=== PATIENT | female | born 2000 | race Caucasian/White ===

== ENCOUNTER 2018-03-29 08:00 | Outpatient (CLI) | payer OTHER | END 2018-03-29 08:01 | LOC: LAB.R 08:00 | PROVIDERS: ATTEND Registered Nurse | DX: Z11.3 Encounter for screening for infections with a predominantly sexual mode of transmission (principal) | CPT/HCPCS: 87491; 87591 ==

== ENCOUNTER 2018-04-26 14:43 | Outpatient (CLI) | payer OTHER ==
[2018-04-26 15:08] LABS: HGB - HEMOGLOBIN 11.8 g/dL (12.0-16.0); MEAN CORPUSCULAR HEMOGLOBIN 32.2 pg (27.0-31.0); MEAN CORPUSCULAR HGB CONC 34.1 g/dL (32.0-36.0); MEAN CORPUSCULAR VOLUME 94.6 fL (81.0-99.0); MEAN PLATELET VOLUME 7.7 fL (7.9-10.8); RED BLOOD COUNT 3.65 10^6/uL (4.20-5.40); RED CELL DISTRIBUTION WIDTH 12.9 % (12.0-15.0); WHITE BLOOD COUNT 10.9 x10^3/uL (4.8-10.8)
== END 2018-04-26 14:44 | disposition home or self-care (01) ==
LOC: LAB 14:43
PROVIDERS: ATTEND Nurse Practitioner Obstetrics & Gynecology
DX: Z36.9 Encounter for antenatal screening, unspecified (principal)
CPT/HCPCS: 36415; 85027; 86850

== ENCOUNTER 2018-05-04 10:04 | Outpatient (CLI) | payer OTHER | END 2018-05-04 10:05 | disposition home or self-care (01) | LOC: LAB 10:04 | PROVIDERS: ATTEND Nurse Practitioner Obstetrics & Gynecology | DX: Z36.9 Encounter for antenatal screening, unspecified (principal) | CPT/HCPCS: 36415; 82950 ==

== ENCOUNTER 2018-05-30 08:00 | Outpatient (CLI) | payer OTHER | END 2018-05-30 08:01 | disposition home or self-care (01) | LOC: LAB.R 08:00 | PROVIDERS: ATTEND Nurse Practitioner Obstetrics & Gynecology | DX: N76.0 Acute vaginitis (principal) | CPT/HCPCS: 87480; 87510; 87660 ==

== ENCOUNTER 2018-07-11 08:00 | Outpatient (CLI) | payer OTHER | END 2018-07-11 23:59 | disposition home or self-care (01) | LOC: LAB.R 08:00 | PROVIDERS: ATTEND Registered Nurse | DX: Z33.1 Pregnant state, incidental (principal) | CPT/HCPCS: 87491; 87591; 87797 ==

== ENCOUNTER 2018-07-11 12:02 | Outpatient (CLI) | payer OTHER ==
[2018-07-12 12:26] LABS: HEPATITIS C ANTIBODY NON-REACTIVE (NON-REACTIVE); HIV AG/AB 4TH GEN NON-REACTIVE (NON-REACTIVE)
== END 2018-07-11 12:03 | disposition home or self-care (01) ==
LOC: LAB 12:02
PROVIDERS: ATTEND Registered Nurse
DX: Z33.1 Pregnant state, incidental (principal)
CPT/HCPCS: 36415; 81599; 86803; 87389; 87491; 87591; 87797

== ENCOUNTER 2018-08-10 08:13 | Inpatient (IN) | payer OTHER ==
[2018-08-10] MEDS ORDERED: ONDANSETRON 4 MG/2 ML VIAL IVP PRN (08:22)
[2018-08-10] MEDS ORDERED: fentaNYL 100 MCG/2 ML VIAL IVP PRN (08:22)
[2018-08-10] MEDS ORDERED: SODIUM CHLORIDE FLUSH 0.9% 10 ML SYRINGE IVP PRN (08:22)
[2018-08-10 08:58] LABS: BASOPHILS % (AUTO) 0.5 %; EOSINOPHILS # (AUTO) 0.1 10^3/uL (0.0-0.7); EOSINOPHILS % (AUTO) 0.7 %; HGB - HEMOGLOBIN 11.3 g/dL (12.0-16.0); LYMPHOCYTES # (AUTO) 1.7 10^3/uL (1.5-3.5); LYMPHOCYTES % (AUTO) 22.1 %; MEAN CORPUSCULAR HGB CONC 33.3 g/dL (32.0-36.0); MEAN CORPUSCULAR VOLUME 90.2 fL (81.0-99.0); MONOCYTES # (AUTO) 0.9 10^3/uL (0.0-1.0); MONOCYTES % (AUTO) 11.1 %; NEUTROPHILS % (AUTO) 65.6 %; PLT - PLATELET COUNT 263 10^3/uL (130-450); RED BLOOD COUNT 3.76 10^6/uL (4.20-5.40); RED CELL DISTRIBUTION WIDTH 14.3 % (12.0-15.0); WHITE BLOOD COUNT 7.7 x10^3/uL (4.8-10.8)
[2018-08-10] MEDS ORDERED: LACTATED RINGERS 1,000 ML IV SCH (09:00)
[2018-08-10] MEDS: miSOPROStol 100 MCG TABLET BC SCH (12:09)
[2018-08-10] MEDS ORDERED: ZOLPIDEM 5 MG TABLET PO PRN (21:00)
--- NOTE | 2018-08-11 06:30 | HISTORY & PHYSICAL EXAMINATION ---
Admit History - Visit Reason Visit Reason: Other - : 1 Parity: 0 Premature: 0 Ectopic: 0 : 0 Care: positive: [facility] Risk/History: positive: None Complications This : positive: None Smoking Status: Never smoker - Mother's Labs Mother's RH: positive: Positive GBS: positive: Group B Step Negative Rubella Status: positive: Immune Meds/Allgy - Home Medications Home Medications: Ambulatory Orders Medication Instructions Recorded Confirmed Pnv No.121/Iron/Folic Acid 1 each PO DAILY 08/10/18 08/10/18 [ Multivitamin Tablet] - Allergies Allergies/Adverse Reactions: Allergies Allergy/AdvReac Type Severity Reaction Status Date / Time No Known Drug Allergies Allergy Verified 08/10/18 09:35 Review of Systems - Constitutional Constitutional: denies: Fatigue, Fever, Chills, Malaise - Eyes Eyes: denies: Blurred vision, Spots in vision, Dipolpia - Cardiovascular Cariovascular: denies: Irregular heart rate, Chest pain, Edema - Respiratory Respiratory: denies: Cough, Sputum production, Wheezing, SOB at rest - Gastrointestinal Gastrointestinal: denies: Abdominal pain, Constipation, Diarrhea, Nausea, Vomiting - Integumentary Integumentary: denies: Rash, Pruritis - Psychiatric Psychiatric: denies: Depression, Anxiety Physical - Abdominal Exam Vital Signs: Temp Pulse Resp BP Pulse Ox 37 C 63 16 118/63 08/10/18 19:00 08/10/18 19:00 08/10/18 19:00 08/10/18 19:00 Contraction Frequency (min/apart): 4-6 Contraction Intensity: positive: Mild Uterine Resting Tone: positive: Soft - Monitoring Heart Rate Baseline: 130 Strip Review: positive: Category I - Presentation Presentation: positive: Vertex - Vaginal Exam Membranes: positive: Membranes intact Dilation (in cm): 1 Effacement (%): 80 Station: positive: -2 Cervical Position: positive: Posterior - Speculum Exam Speculum Exam Performed: positive: No Plan for Labor - Plan For Labor I expect patient to be DC'd or transferred within 96 hours.: Yes Plan for Labor: HPI: This 18yo @ 40.2wks By 10w.5k U/S presented on 08/10/2018 at 0830 for IOL with pre-induction cervical ripening. Upon arrival she was noted to be 1/80/-1, posterior, vertex. This was unchanged from her cervical examination in the office 4 days prior. She denies VB or Lof and reports +FM. She is unable to feel her contractions. She has received regular care through the duration of her and she was a transfer of care from [facility] to [facility] @ 21wks gestation. Dating criteria: LMP unsure Initial ultrasound @ 10.5wks OB History: G1: Current Meds: PNV Allergies: NKDA PMHx: Anxiety/depression Surgical Hx: None Social Hx: Never smoker, no ETOH or IVDA. She is active duty . 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 Family Hx: Diabetes- Mother, Maternal Grandmother labs: O pos, antibody neg Hgb 13.0, Hct 39.2, PLT 277 UA negative GC/CT neg Hep B neg Hep C neg VZV neg Rubella immune HIV non-reactive Immunizations: Influenza 04/26/2019 Tdap 05/18/2019 28wk labs: 1 hour GTT 124 Hgb 11.8 Antibody negative 36wk Labs: GBS NEGATIVE HIV non-reactive GC/CT neg RPR non-reactive Hep C neg Genetic testing: Serum integrated screen Negative CF Carrier - FOB negative Ultrasounds: Initial U/S @ 10.5wks gestation dates FAS not included with record - requesting A: 18yo @ 40.2wks gestation by 10.5wk U/S GBS negative Pre-induction cervical ripening with misoprostol P: Place in observation status in anticipation for pre-induction cervical ripening. Plan misoprostol BC q 4 hours. Admit when in active labor or with SROM. Anticipate spontaneous vaginal delivery.
[2018-08-11] MEDS: SODIUM CHLORIDE FLUSH 0.9% 10 ML SYRINGE IVP SCH ×2 (06:31→10:35)
[2018-08-11] MEDS: miSOPROStol 100 MCG TABLET BC SCH ×2 (06:33→10:34)
--- NOTE | 2018-08-11 07:12 | PROVIDER PROGRESS NOTE ---
Subjective - Subjective Subjective: Mood is good. Laying comfortably in bed with Paul at the bedside for support. Feeling intermittent cramping but nothing overly uncomfortable. Contracted intermittently throughout the night. Did take an ambien for sleep which helped and she states she was able to get a good night's sleep. Misoprostol held throughout the night and patient received 1 dose 08/10/2018. NSTs every 4 hours throughout the night were reactive. SVE 2/90/-1, midposition, vertex. Membranes intact. Assessment: 18yo @ 40.3wks gestation by 10.5wk U/S Pre-induction cervicla ripening with 50mcg Misoprostol q 4 hours BC - total doses administered = 1 GBS negative. FHT Category I Plan: Resume administration of 50mcg misoprostol q 4 hrs BC. Consider AROM after 2 doses of misoprostol given today. Reviewed above plan with patient, FOB and OB RN who are all in agreement. Admit when in active labor or with SROM. Anticipate spontaneous vaginal delivery. Objective - Vital Signs/Intake & Output Intake & Output: Intake & Output 08/08/18 08/09/18 08/10/18 08/11/18 23:59 23:59 23:59 23:59 Intake Total 1000 Balance 1000 - Lab Results Fish Bones: 08/10/18 08:49 Other Labs: Lab Results x24hrs 08/10/18 Range/Units 08:49 WBC 7.7 (4.8-10.8) x10^3/uL RBC 3.76 L (4.20-5.40) 10^6/uL Hgb 11.3 L (12.0-16.0) g/dL Hct 33.9 L (37.0-47.0) % MCV 90.2 (81.0-99.0) fL MCH 30.0 (27.0-31.0) pg MCHC 33.3 (32.0-36.0) g/dL RDW 14.3 (12.0-15.0) % Plt Count 263 (130-450) 10^3/uL MPV 8.0 (7.9-10.8) fL Neut # (Auto) 5.0 (1.5-6.6) 10^3/uL Lymph # (Auto) 1.7 (1.5-3.5) 10^3/uL [place] # (Auto) 0.9 (0.0-1.0) 10^3/uL Eos # (Auto) 0.1 (0.0-0.7) 10^3/uL Baso # (Auto) 0.0 (0.0-0.1) 10^3/uL Absolute Nucleated RBC 0.00 x10^3/uL Nucleated RBC % 0.0 /100WBC
[2018-08-11] MEDS ORDERED: fent/BUPIV 2 MCG/0.125% 250 ML EP ONE (11:29)
--- NOTE | 2018-08-11 11:29 | ANESTHESIA ---
Pre-Anesthesia VS, & Labs - Diagnosis active labor - Procedure vaginal delivery Vital Signs: Temp Pulse Resp BP Pulse Ox 37 C 63 16 118/63 08/10/18 19:00 08/10/18 19:00 08/10/18 19:00 08/10/18 19:00 Height 5 ft 7 in Weight (kg) 77.564 kg - NPO Other (not npo) - Is Patient ?: Yes - Lab Results Current Lab Results: Laboratory Tests 08/10/18 08:49: WBC 7.7, RBC 3.76 L, Hgb 11.3 L, Hct 33.9 L, MCV 90.2, MCH 30.0, MCHC 33.3, RDW 14.3, Plt Count 263, MPV 8.0, Neut # (Auto) 5.0, Lymph # (Auto) 1.7, [place] # (Auto) 0.9, Eos # (Auto) 0.1, Baso # (Auto) 0.0, Absolute Nucleated RBC 0.00, Nucleated RBC % 0.0 Fish Bones: 08/10/18 08:49 Home Medications and Allergies Home Medications: Ambulatory Orders Pnv No.121/Iron/Folic Acid [ Multivitamin Tablet] 1 each PO DAILY 08/10/18 Active Medications Fentanyl (Fentanyl) 50 mcg IVP Q1H PRN PRN Reason: PAIN Lactated Ringer's (Lr) 1,000 mls @ 100 mls/hr IV .Q10H [facility] Last Admin: 08/10/18 12:11 Dose: 100 mls/hr Misoprostol (Cytotec) 50 mcg BC Q4H [facility] Last Admin: 08/11/18 10:34 Dose: 50 mcg Ondansetron HCl (Zofran Inj) 4 mg IVP Q4HR PRN PRN Reason: Nausea / Vomiting Sodium Chloride (Normal Saline Flush 0.9%) 10 ml IVP 0100,0900,1700 [facility] Last Admin: 08/11/18 10:35 Dose: 10 ml Sodium Chloride (Normal Saline Flush 0.9%) 10 ml IVP PRN PRN PRN Reason: NEEDED PER PROVIDER ORDERS Zolpidem Tartrate (Ambien) 10 mg PO QPM PRN PRN Reason: Insomnia Last Admin: 08/10/18 21:41 Dose: 10 mg Pnv No.121/Iron/Folic Acid [ Multivitamin Tablet] 1 each PO DAILY 08/10/18 Allergies/Adverse Reactions: Allergies Allergy/AdvReac Type Severity Reaction Status Date / Time No Known Drug Allergies Allergy Verified 08/10/18 09:35 Anes History & Medical History - Anesthetic History Family history of Anesthesia Complications: Denies Family history of Malignant Hyperthermia: Denies - Medical History Cardiovascular: reports: None Pulmonary: reports: None Gastrointestinal: reports: None Urinary: reports: None Neuro: reports: None Musculoskeletal: reports: Scoliosis (patient reports lumbar scoliosis) Endocrine/Autoimmune: reports: None Blood Disorders: reports: None Smoking Status: Never smoker - Obstetrical History : 1 Parity: 0 Events: positive: None Complications: positive: None Exam General: Alert, Oriented x3, Cooperative, No acute distress Dental: WNL Mouth Openin Fingerbreadth Neck Mobility: Normal Mallampati classification: II Thyromental Distance: 4-6 cm Respiratory: Lungs clear, Normal breath sounds, No respiratory distress, No accessory muscle use Cardiovascular: Regular rate, Normal S1, Normal S2, No murmurs Mental/Cognitive Status: Alert/Oriented X3, Normal for patient Plan Anesthesia Type: Epidural Consent for Procedure(s) Verified and Reviewed: Yes Code Status: Attempt Resuscitation ASA classification: 2-Mild systemic disease Is this case an emergency?: No
[2018-08-11] MEDS ORDERED: BUPIVACAINE 0.25% PF 10 ML VIAL ONE (11:30)
[2018-08-11] MEDS ORDERED: NALBUPHINE 10 MG/ML AMP IVP PRN (12:01)
[2018-08-11] MEDS ORDERED: fent/BUPIV 2 MCG/0.125% 250 ML EP PRN (12:01)
[2018-08-11] MEDS ORDERED: NALOXONE 0.4 MG/ML VIAL IVP PRN (12:01)
[2018-08-11] MEDS ORDERED: ONDANSETRON 4 MG/2 ML VIAL IVP PRN (12:01)
[2018-08-11] MEDS ORDERED: ePHEDrine 50 MG/ML VIAL IVP PRN (12:01)
[2018-08-11] MEDS ORDERED: ePHEDrine 50 MG/ML VIAL IVP ONE (12:11)
[2018-08-11] MEDS ORDERED: OXYTOCIN/SODIUM CHLORIDE 500 ML IV ONE (13:30)
[2018-08-11] MEDS ORDERED: WITCH HAZEL/GLYCERIN 1 EACH MED..PAD TOP PRN (14:05)
[2018-08-11] MEDS ORDERED: HYDROCORTISONE 1% CREAM 28 GM TUBE PR PRN (14:05)
--- NOTE | 2018-08-11 16:00 | DELIVERY NOTE ---
Delivery Note - Labor Labor: positive: Other - Infant Delivery Method Delivery Method: positive: Spontaneous vaginal delivery - Presentation Presentation: positive: Vertex, ROMARIO - left occiput anterior - Nuchal Cord Nuchal Cord: positive: Present, Reduced - Amniotic Fluid Description Amniotic Fluid Description: positive: Clear - Episiotomy Type Episiotomy Type: positive: None - Laceration Laceration: positive: Labial - Suture Suture Type: positive: Vicryl Suture Size: positive: 4-0 - Delivery Outcome Delivery Outcome: positive: Livebirth - [place] Lovejoy: positive: Placed in direct skin contact with mother, Bulb syringe, Stimulated, Warmed, [place] used Lovejoy sex: positive: Female - Cord Cord: positive: 3 vessels - Placenta Placenta: positive: Intact, Spontaneous - Estimated Blood Loss Estimated Blood Loss (in cc): 300 - Post Delivery Events Post Delivery Events: positive: No post delivery events - Delivery Comments (Free Text/Narrative) Delivery Comments (Free Text/Narrative): Labor: THis 18yo @ 40.3wks gestation by 10.5wk U/S presented at 0830 on 08/10/2018 for pre-induction cervical ripening with misoprostol. Cervix was 1/80/-2 and vertex. 50mcg Misoprostol BC administered x 1 and patient progressed to 2/90/-1. Misoprostol was held over night and she was given Ambien PO to promote sleep. at 0630 on 08/11/2018 she was given 50mcg Misoprostol BC q 4 hours x 2 doses, and therefore receiving 3 total doses. SROM occurred at 1040 on 08/11/2018 and was noted to be a moderate amount of clear fluid. Patient was admitted to [facility] and epidural was placed per maternal request. The patient progressed to c/c/ +2 at 1319 and began actively pushing at 1338. FHR pattern demonstrated Category I and II tracing with intermittent variable and late decelerations near complete dilation, overall reassuring. Spontaneous vaginal delivery of viable female at 1350 on 08/11/2018. Tig ht nuchal cord x 1 reduced. Apgars 8/9 at 1 and 5 min respectively. The was placed on maternal abdomen, stimulated, dried, and placed skin to skin. Pitocin administered via IV for hemostasis. The umbilical cord was allowed to stop pulsating at which time it was doubly clamped by CNM and cut by FOB. Cord blood was obtained. Placenta delivered spontaneously and intact at 1352. 3VC. EBL 300mL. Uterine fundus firm and there is no excessive bleeding. The perineum, vagina, and cervix were inspected and noted to have a minor, superficial left labial laceration which was repaired using a 4-0 vicryl on an SH needle in standard fashion under sterile conditions. Tissues well approximated and hemostasis achieved. initiated. Family bonding well. Both mother and baby were left in stable condition.
[2018-08-11] MEDS: ACETAMINOPHEN 500 MG TABLET PO SCH (17:29)
[2018-08-11] MEDS: IBUPROFEN 800 MG TABLET PO SCH (17:29)
[2018-08-12] MEDS: IBUPROFEN 800 MG TABLET PO SCH ×5 (00:36→20:56)
[2018-08-12] MEDS: ACETAMINOPHEN 500 MG TABLET PO SCH ×3 (03:53→23:13)
[2018-08-12] MEDS: SODIUM CHLORIDE FLUSH 0.9% 10 ML SYRINGE IVP SCH (04:52)
--- NOTE | 2018-08-12 08:41 | PROVIDER PROGRESS NOTE ---
Subjective - Subjective Subjective: 08/12/2018, PPD#1 S: Bonding well with baby. without difficulty. Pain well controlled with oral medications. Bleeding moderate without cramping. Mood is good. States she is feeling well. O: Heart RRR w/o M/G/R, lungs CTAB, abdomen gravid, soft, and nontender with fundus firm at U-2. Perineum intact. Bilateral LE's no edema. A: 18yo -->P1 s/p TSVD of viable female infant Perineum intact P: Continue routine care and medications. Evaluate for discharge home tomorrow. Pt verbalized understanding and agrees to above plan. Denies further questions or concerns at this time. Objective - Vital Signs/Intake & Output Vital Signs: Vital Signs x48h Temp Pulse Resp BP Pulse Ox 08/12/18 08:35 36.9 C 85 19 119/72 100 08/12/18 04:47 36.7 C 68 16 117/55 L 99 08/12/18 00:51 36.5 C 62 16 123/75 100 Intake & Output: Intake & Output 08/09/18 08/10/18 08/11/18 08/12/18 23:59 23:59 23:59 23:59 Intake Total 1000 Balance 1000 - Lab Results Fish Bones: 08/10/18 08:49
--- NOTE | 2018-08-13 09:19 | Discharge Plan ---
Discharge Plan Disposition: 01 Home, Self Care Condition: Good Diet: Regular Activity Restrictions: No Restrictions Shower Restrictions: No Driving Restrictions: No Weight Bearing: Full Weight No Smoking: If you smoke, Please STOP! Call for help. Follow-up with: Jing Regan CNM, ARNP [Provider Admit Priv/Credential] -
--- NOTE | 2018-08-13 09:33 | PROVIDER PROGRESS NOTE ---
Subjective - Subjective Subjective: FINAL PROGRESS NOTE: S: Bonding well with baby. with little difficulty. Had some bruising and chapping of her nipples bilaterally. Nurse discussed nursing positions with her and her discomfort has improved. Bleeding decreased and is light. Pain well controlled with oral medications. O: 119/60 HR 73, RR 17, T 36.7 Heart RRR w/o M/G/R, lungs CTAB, Abdomen gravid, soft and nontender with fundus firm at U-2. Bilateral LE"s no edema. A: 18yo -->P1 s/p TSVD of viable female Normal recovery P: Discharge home today on ppd #2 Reviewed pp warning s/sx and when to present. Discharge teaching and f/u instructions reviewed. Advised continuation of PNV while . Encouraged Ibuprofen and Tylenol OTC PRN for pain management. Pt plans to f/u with myself in 1 week for support visit and in 3 weeks for routine pp visit. She denies further questions or concerns at this time. Objective - Vital Signs/Intake & Output Vital Signs: Vital Signs x48h Temp Pulse Resp BP Pulse Ox 08/13/18 05:10 36.7 C 73 17 119/60 98 08/13/18 01:29 36.9 C 72 17 114/55 L 97 Intake & Output: Intake & Output 08/10/18 08/11/18 08/12/18 08/13/18 23:59 23:59 23:59 23:59 Intake Total 1000 Balance 1000 - Lab Results Fish Bones: 08/10/18 08:49
--- NOTE | 2018-08-13 11:18 | DISCHARGE SUMMARY ---
Physician: KRYSTIN Sylvester DATE OF ADMISSION: 08/11/2018 DATE OF DISCHARGE: 08/13/2018 DIAGNOSES ON ADMISSION 1. A 18-year-old G1, P0 at 40 and 2 weeks' gestation. 2. Pre-induction cervical ripening with misoprostol. 3. Normal . 4. Group B streptococcus negative. DIAGNOSES ON DISCHARGE 1. A 18-year-old G1, P1-0-0-1, status post spontaneous vaginal delivery on 08/11/2018. 2. Normal recovery. BRIEF HISTORY: She is a patient of [facility] who presented on 08/10/2018 at 0830 for induction of labor with pre-induction cervical ripening. Upon arrival, she was noted to be 1/80/-1, posterior and vertex. She received a total of 3 doses of 50 mcg of misoprostol BC. Spontaneous rupture of membranes occurred at 10:40 on 08/11/2018. There was noted to be a moderate amount of clear fluid. Epidural was placed per maternal request. She spontaneously delivered a viable female named Abby. Apgars were 8 and 9 at one and five minutes respectively. EBL 300 mL. She has been doing well in her course. She is ambulating and tolerating a regular diet. She is urinating without difficulty and her lochia is normal. Her pain is well controlled with oral medications. She will be discharged home today on day 2 with instructions to continue vitamin while , and take ibuprofen and Tylenol [id number] as needed for pain. She has also been given a hard copy prescription for all- purpose nipple ointment. She intends to follow up with myself at [facility] in 1 week for a support visit and in 3 weeks for a routine visit. She has been given precautions to call if she has any worsening fevers, chills, abdominal pain, increased bleeding or foul-smelling vaginal lochia. TD: 08/13/2018 09:30 MANDO
[2018-08-13 12:28] VITALS: BP 118/80
--- NOTE | 2018-08-13 15:52 | Labor Flowsheet ---
Labor Flowsheet Datetime Report Generated by CPN: 08/13/2018 15:52 Datetime: 08/12/2018 20:08 VITAL SIGNS NBP Sys/Corrina/Mean (mmHg): 107 : 54 : 67 Pulse: 66 SpO2 (%): 99 LaborFlag: Antepartum Datetime: 08/11/2018 13:48 Comments: delivery 1350 Heart tones prior to [id number] with audible decels Datetime: 08/11/2018 13:38 STAGE 2 Pushing: Urge to Push Pushing Position: Pushing with Contractions Pushing Progress: Descent with Pushing Stage 2 Comments: 1352 Datetime: 08/11/2018 13:36 COMMUNICATION Communication: Provider at Bedside Communication Comments: pt pushing Datetime: 08/11/2018 13:23 Pain Assessment Comments: feeling pressure with each ctx. shaky Vaginal Bleeding: Scant Datetime: 08/11/2018 13:19 VAGINAL EXAM Dilatation (cm): 10.0 Station: 1 Exam by: brianna valverde rn Cervix, Consistency: Soft Datetime: 08/11/2018 13:15 Contraction Comments: unable to determine Monitor Interventions for FHR: Ultrasound Adjusted Actions for Decelerations: Side to Side Datetime: 08/11/2018 13:13 Temperature (C): 37.0 Datetime: 08/11/2018 13:06 Patient Position/Activity: Left Extreme Datetime: 08/11/2018 12:45 FHR Baseline Changes: No Baseline Change Datetime: 08/11/2018 12:30 UTERINE ACTIVITY Monitor Mode: External Frequency (min): 2-3 Quality: Moderate Duration (sec): 30-60 Pattern: Normal: <= 5 Contractions in 10 Minutes Resting Tone (Palpate): Relaxed ASSESSMENT A Monitor Mode: Telemetry FHR Baseline Rate : 145 Variability: Moderate 6-25 bpm Accelerations: None Decelerations: None Category: Category I Oxygen Method: Room Air Datetime: 08/11/2018 12:15 Monitor Interventions for UA: [place] Adjusted Datetime: 08/11/2018 12:12 Respirations: 16 Datetime: 08/11/2018 12:00 MEDICATIONS Magnesium/Antihypertensives: Ephedrine IV (mg) @ Medication Comments: ephedrine IV given by roc harden. see notes Datetime: 08/11/2018 11:57 Patient Care Comments: pt feeling light headed and ringing in ears. bp low, see flowsheet. dereck at bedside, pt turned far right, o2 10nrm applied Datetime: 08/11/2018 11:50 Epidural Procedure Other: Pump Started Datetime: 08/11/2018 11:46 Epidural Procedure: Loading Dose Datetime: 08/11/2018 11:42 ANESTHESIA Epidural Positioning: Sitting Datetime: 08/11/2018 11:33 PROCEDURE TIME OUT Procedure Verify: Correct Patient Identity; Agreement on Procedure to be Done; Correct Patient Posi tion; Addressed Need to Administer Antibiotics or Fluids for Irrigation; Safety Precautions Based on Patient History or Medication Use Datetime: 08/11/2018 11:21 Anesthesia Comments: adreinne dereck called for epidural placement Datetime: 08/11/2018 11:16 Effacement (%): 80 Cervix, Position: Midposition Datetime: 08/11/2018 10:42 PAIN Pain Scale: 5 Pain Coping: Breathing Through Contractions Datetime: 08/11/2018 10:40 Membrane Status: Ruptured Membranes Rupture Method: Spontaneous Nitrazine: Positive Membrane Comments: Rom plus collected Datetime: 08/11/2018 09:30 ASSESSMENT B Monitor Mode: Telemetry Datetime: 08/11/2018 06:22 Provider Reviewed Strip: Yes Strip Reviewed by: A. Shereen CNM Notification Reason: Status Update Datetime: 08/10/2018 22:45 Temperature Route: Oral Datetime: 08/10/2018 19:03 Stage of : Antepartum Datetime: 08/10/2018 18:00 PATIENT CARE IV/Blood Work: IV Saline Locked Datetime: 08/10/2018 16:09 Provider Notified (Name): Jing Shereen Datetime: 08/10/2018 15:30 Pitocin Checklist: At Least 1 Acceleration of 15 bpm x 15 Seconds in 30 Minutes or Adequate Variabi lity Pain Presence: None/Denies Datetime: 08/10/2018 15:04 MATERNAL ASSESSMENT Level of Consciousness: Fully Conscious Headache: Denies Nausea/Vomiting: Denies RUQ Epigastric Pain: Denies Datetime: 08/10/2018 14:48 I/O Interventions: Up to BR Datetime: 08/10/2018 10:00 MONTEVIDEO UNITS (Computed) Contractions in Ten Minutes: 0 Datetime: 08/10/2018 09:00 TEACHING Instructional Method: Verbal Plan of Care: Plan of Care Discussed Unit Routine: [place] to Room; Call [place]; Bed Labor/Induction: Cervical Ripening Pain Management: Epidural; Comfort Measures Related: Hydration; Activity and Rest
== END 2018-08-13 12:30 | disposition home or self-care (01) | DRG 807 ==
LOC: WFO 08:13 → FBP 08:15 → WFO 08:21 → FBP 08:22 → OBSVTOIN 08-11 10:40 → FBP 08-12 21:51
PROVIDERS: ADMIT Nurse Practitioner Obstetrics & Gynecology; ATTEND Nurse Practitioner Obstetrics & Gynecology
PROC: 10E0XZZ Delivery of Products of Conception, External Approach (ICD-10-PCS; principal; 2018-08-11)
PROC: 0HQ9XZZ Repair Perineum Skin, External Approach (ICD-10-PCS; 2018-08-11)
DX: O48.0 Post-term pregnancy (principal); Z37.0 Single live birth; O69.2XX0 Labor and delivery complicated by other cord entanglement, with compression, not applicable or unspecified; O70.0 First degree perineal laceration during delivery; Z3A.40 40 weeks gestation of pregnancy
CPT/HCPCS: 36415; 85025

== ENCOUNTER 2018-08-20 18:16 | Emergency (ER) | payer OTHER ==
[2018-08-20 18:22] VITALS: BP 128/84
[2018-08-20] MEDS ORDERED: cephALEXin 250 MG CAPSULE PO STA (18:51)
--- NOTE | 2018-08-20 18:53 | ED Physician Documentation ---
History of Present Illness - Stated complaint Stated Complaint: BODY ACHES/FEVER - Chief complaint Chief Complaint: General - History obtained from History obtained from: Patient, Family - History of Present Illness Timing: How many days ago (2) Pain level max: 5 Pain level now: 4 Improved by: breast feeding Worsened by: palpation - Additonal information Additional information: 18-year-old female 1 week status post giving . She is breast-feeding. Presents with increasing breast pain and feelings of chills. Concerned she is developing mastitis. She was pumping every 2 hours, has now extended every 4 hours. No problems with the or the . This is her first child. No rhinorrhea, congestion, coughing, nausea or vomiting. Review of Systems Ten Systems: 10 systems reviewed and negative Constitutional: reports: Chills. denies: Fever Ears: denies: Ear pain Nose: denies: Rhinorrhea / runny nose, Congestion Throat: denies: Sore throat Cardiac: denies: Chest pain / pressure Respiratory: denies: Cough : denies: Dysuria Skin: denies: Rash Musculoskeletal: denies: Neck pain, Back pain Neurologic: denies: Headache PD PAST MEDICAL HISTORY - Past Medical History Past Medical History: Yes Cardiovascular: None Respiratory: None Neuro: None Endocrine/Autoimmune: None GI: None HAND FUR CLEANER: None : None HEENT: None Psych: None Musculoskeletal: None, Scoliosis Derm: None - Past Surgical History Past Surgical History: No - Present Medications Home Medications: Ambulatory Orders Medication Instructions Recorded Confirmed Pnv No.121/Iron/Folic Acid 1 each PO DAILY 08/10/18 08/20/18 [ Multivitamin Tablet] Cephalexin [Keflex] 500 mg PO Q6H #28 capsule 08/20/18 - Allergies Allergies/Adverse Reactions: Allergies Allergy/AdvReac Type Severity Reaction Status Date / Time No Known Drug Allergies Allergy Verified 08/20/18 18:22 - Social History Does the pt smoke?: No Smoking Status: Never smoker Does the pt drink ETOH?: No Does the pt have substance abuse?: No - Immunizations Immunizations are current?: Yes - POLST Patient has POLST: No PD ED PE NORMAL - Vitals Vital signs reviewed: Yes - General General: Alert and oriented X 3, No acute distress, Well developed/nourished - HEENT HEENT: PERRL, Moist mucous membranes - Neck Neck: Supple, no meningeal sign - Cardiac Cardiac: RRR, Strong equal pulses - Respiratory Respiratory: No respiratory distress, Clear bilaterally - Abdomen Abdomen: Soft, Non tender, Non distended - Derm Derm: Warm and dry, No rash, Other (B breasts are engorged and tender. mild erythema B.) - Neuro Neuro: Alert and oriented X 3 - Psych Psych: Normal mood, Normal affect Results - Vitals Vitals: Vital Signs - 24 hr 08/20/18 18:18 Temperature 37.4 C Heart Rate 108 H Respiratory 20 Rate Blood Pressure 128/84 H O2 Saturation 99 Oxygen O2 Source Room air PD MEDICAL DECISION MAKING - ED course Complexity details: considered differential, d/w patient, d/w family ED course: 18-year-old female with what appears to be possible mastitis, will treat with Keflex. May just be breast engorgement as well and will have her increase her feeding frequencies. Patient is well-appearing, nontoxic. No evidence of abscess. Patient counseled regarding signs and symptoms for which I believe and urgent re-evaluation would be necessary. Patient with good understanding of and agreement to plan and is comfortable going home at this time This document was made in part using voice recognition software. While efforts are made to proofread this document, sound alike and grammatical errors may occur. Departure - Departure Disposition: 01 Home, Self Care Clinical Impression: Breast engorgement, , Mastitis Condition: Good Instructions: ED FAQs, ED Breast Infec Follow-Up: BARBER JAIME MD [Primary Care Provider] - Within 1 week Prescriptions: Cephalexin [Keflex] 500 mg PO Q6H #28 capsule Comments: Take all antibiotics until gone. you can continue to breast-feed during this process. Return if you worsen. You should increase your breast-feeding frequency as this may help your discomfort as well Discharge Date/Time: 08/20/18 19:00
== END 2018-08-20 19:00 | disposition home or self-care (01) ==
LOC: ED 18:16
DX: O92.79 Other disorders of lactation (principal); O91.22 Nonpurulent mastitis associated with the puerperium
CPT/HCPCS: 99283; A9270

== ENCOUNTER 2018-09-07 08:00 | Outpatient (CLI) | payer OTHER | END 2018-09-07 23:59 | disposition home or self-care (01) | LOC: LAB.R 08:00 | PROVIDERS: ATTEND Nurse Practitioner Obstetrics & Gynecology | DX: N76.0 Acute vaginitis (principal) | CPT/HCPCS: 87480; 87510; 87660 ==

== ENCOUNTER 2019-08-20 21:53 | Emergency (ER) | payer OTHER ==
[2019-08-20 22:04] VITALS: BP 121/81
[2019-08-20] MEDS ORDERED: ONDANSETRON 4 MG/2 ML VIAL IVP STA (23:44)
[2019-08-20] MEDS ORDERED: SODIUM CHLORIDE 0.9% 1,000 ML IV ONE (23:44)
--- NOTE | 2019-08-20 23:47 | ED Physician Documentation ---
PD HPI NVD - Stated complaint Stated Complaint: VOMITING - Chief complaint Chief Complaint: Abd Pain - History obtained from History obtained from: Patient - History of Present Illness Timing - onset: Today - Additonal information Additional information: Patient comes emergency department complaining of nausea and vomiting that started this evening. Patient states she did not have a very big appetite today and mainly drank water and tea. She states that around 1700, she began to feel nauseated and started vomiting. She states that at first, she vomited every 20 or 30 minutes, but that the vomiting is slowed down now. Her last episode was approximately 45 minutes ago in the waiting room. Patient denies any abdominal pain. No dysuria. Mild back pain. No diarrhea yet, although patient states her bowels feel unsettled. Patient denies any cough or shortness of breath. No fevers. She states her daughter was sick with something similar couple of days ago, but did not seem to get as ill as the patient has been. Patient states she is otherwise healthy. No other complaints at this time. Review of Systems Ten Systems: 10 systems reviewed and negative Constitutional: reports: Reviewed and negative Eyes: reports: Reviewed and negative Ears: reports: Reviewed and negative Nose: reports: Reviewed and negative Throat: reports: Reviewed and negative Cardiac: reports: Reviewed and negative Respiratory: reports: Reviewed and negative GI: reports: Nausea, Vomiting, Reviewed and negative : reports: Reviewed and negative Skin: reports: Reviewed and negative Musculoskeletal: reports: Reviewed and negative Neurologic: reports: Reviewed and negative Psychiatric: reports: Reviewed and negative Endocrine: reports: Reviewed and negative Immunocompromised: reports: Reviewed and negative PD PAST MEDICAL HISTORY - Past Medical History Past Medical History: Yes Cardiovascular: None Respiratory: None Neuro: None Endocrine/Autoimmune: None GI: None [employer]: None : None HEENT: None Psych: None Musculoskeletal: None, Scoliosis Derm: None - Past Surgical History Past Surgical History: No - Present Medications Home Medications: Ambulatory Orders Medication Instructions Recorded Confirmed Ondansetron Odt [Zofran] 4 mg TL Q6H PRN #10 tablet 08/21/19 - Allergies Allergies/Adverse Reactions: Allergies Allergy/AdvReac Type Severity Reaction Status Date / Time No Known Drug Allergies Allergy Verified 08/20/19 22:04 - Social History Does the pt smoke?: No Smoking Status: Never smoker Does the pt drink ETOH?: No Does the pt have substance abuse?: No - Immunizations Immunizations are current?: Yes - POLST Patient has POLST: No PD ED PE NORMAL - Vitals Vital signs reviewed: Yes - General General: Alert and oriented X 3, No acute distress - HEENT HEENT: PERRL - Neck Neck: Supple, no meningeal sign - Cardiac Cardiac: RRR, No murmur - Respiratory Respiratory: Clear bilaterally - Abdomen Abdomen: Soft, Non tender, Non distended - Derm Derm: Warm and dry - Extremities Extremities: No deformity - Neuro Neuro: Alert and oriented X 3 - Psych Psych: Normal mood, Normal affect Results - Vitals Vitals: Vital Signs - 24 hr 08/20/19 08/21/19 22:00 00:03 Temperature 37.2 C Heart Rate 122 H 105 H Respiratory 18 Rate Blood Pressure 121/81 H O2 Saturation 97 99 Oxygen O2 Source Room air PD MEDICAL DECISION MAKING - ED course Complexity details: reviewed old records, re-evaluated patient, considered differential, d/w patient ED course: Patient was treated symptomatically in the emergency department with IV fluids and Zofran, as she was tachycardic, and I suspected dehydration.Patient's heart rate did come down after IV fluids. We have discussed home management of the symptoms, as well as usual indications for return. Patient has been given a prescription for Zofran. Departure - Departure Disposition: 01 Home, Self Care Clinical Impression: Gastroenteritis Condition: Fair Instructions: ED Gastroenteritis Viral Prescriptions: Ondansetron Odt [Zofran] 4 mg TL Q6H PRN #10 tablet PRN Reason: Nausea / Vomiting Comments: Your symptoms are most consistent with 1 of the many viruses that are going around right now, causing vomiting and diarrhea. Generally, the symptoms last most intensely for the first 24 hours and then resolve after that. You may not be back to your full appetite for several days to a week after the vomiting resolves. You may also have diarrhea for another couple of days after the vomiting. Take the Zofran as needed for nausea. You have been treated with IV fluids today for dehydration. You have also been given IV nausea medication. Please do not take anything other than clear liquids until you have been without vomiting for at least 8 hours. Tonight, you should not have anything else by mouth, but should go straight to bed. You may try drinking little bits of water in the morning. Discharge Date/Time: 08/21/19 00:46
== END 2019-08-21 00:46 | disposition home or self-care (01) ==
LOC: ED 21:53
DX: K52.9 Noninfective gastroenteritis and colitis, unspecified (principal)
CPT/HCPCS: 96360; 99284